=== PATIENT | female | born 1980 | race Caucasian/White ===

== ENCOUNTER 2017-05-15 15:09 | Outpatient (CLI) | payer MEDICAID ==
[~2017-05-15] VITALS: Ht 152.4 cm; Wt 85.0 kg
[~2017-05-15 15:09] MED LIST: PREN-39 PO
[2017-05-15 16:07] VITALS: Ht 152.4 cm; Wt 85.0 kg
[2017-05-15 16:08] VITALS: BP 116/80; PULSE 86; RESP 20
--- NOTE | 2017-05-15 16:40 | RADRPT ---
PROCEDURE: OB ultrasound CLINICAL INDICATION: induced hypertension TECHNIQUE: Multiple transverse and longitudinal OB images of the pelvis were obtained. The images were reviewed on a high-resolution PACS workstation. COMPARISON: None FINDINGS: A single live intrauterine is seen. The presentation is vertex. The placenta is grade 2 a nd anterior in location. No evidence of placenta abruption or previa is seen. The heart rate i s 142 beats per minute. The amniotic fluid index is 12th cm. movement 2 tone 2 breathing 2 Amniotic fluid 2 IMPRESSION: Biophysical profile of 04/10. RPTAT: HPNM Physician Jules Date Time Electronically viewed and signed by Physician Jules on 05/15/2017 16:39 /
[2017-05-15] MEDS ORDERED: CALC600T11 PO (16:48)
[2017-05-15] MEDS ORDERED: FER325 PO (16:48)
[2017-05-15 16:52] LABS: BASOPHILS % 0.5 % (0.0-2.0); EOSINOPHILS % 0.6 % (0.0-7.0); HEMOGLOBIN 12.4 g/dl (12.0-16.0); LYMPHOCYTES # 1.9 10^3/ul (0.8-2.9); LYMPHOCYTES % 29.3 % (15.0-51.0); MEAN CORPUSCULAR HEMOGLOBIN 27.3 pg (29.0-33.0); MEAN CORPUSCULAR HGB CONC 33.5 g/dl (32.0-37.0); MEAN CORPUSCULAR VOLUME 81.3 fl (82.0-101.0); MEAN PLATELET VOLUME 12.5 fl (7.4-10.4); MONOCYTE # 0.7 10^3/ul (0.3-0.9); MONOCYTES % 10.3 % (0.0-11.0); NEUTROPHILS % 59.1 % (39.0-77.0); PLATELET COUNT 197 10^3/UL (140-415); RED BLOOD COUNT 4.55 10^6/ul (4.20-5.40); RED CELL DISTRIBUTION WIDTH 14.7 % (11.5-14.5); WHITE BLOOD COUNT 6.5 10^3/ul (4.8-10.8)
[2017-05-15 17:02] LABS: INR 0.9; PARTIAL THROMBOPLASTIN TIME 25.7 Sec (25.0-35.0); PROTIME 12.1 Sec (12.2-14.2); PT RATIO 0.9
[2017-05-15 17:09] LABS: ADD UMIC YES; ALBUMIN 3.5 g/dl (3.3-4.9); BILIRUBIN,INDIRECT 0.3 mg/dl (0-1.1); BILIRUBIN,TOTAL 0.3 mg/dl (0.2-1.3); TOTAL PROTEIN 6.6 g/dl (6.1-8.1); UR ASCORBIC ACID NEGATIVE (NEGATIVE); UR BILIRUBIN (Dip) NEGATIVE (NEGATIVE); UR BLOOD (Dip) NEGATIVE (NEGATIVE); UR CLARITY CLOUDY (CLEAR); UR COLOR YELLOW (YELLOW); UR GLUCOSE (Dip) NEGATIVE (NEGATIVE); UR KETONES (Dip) NEGATIVE (NEGATIVE); UR LEUKOCYTE ESTERASE (Dip) 2+ Leu/ul (NEGATIVE); UR MUCUS FEW /HPF (NONE SEEN); UR NITRITE (Dip) NEGATIVE (NEGATIVE); UR RBC 3 /HPF (0-5); UR SPECIFIC GRAVITY (Dip) 1.026 (1.003-1.030); UR SQUAMOUS EPITHELIAL CELL MANY /HPF (FEW); UR TOTAL PROTEIN (Dip) 1+ mg/dl (NEGATIVE); UR UROBILINOGEN (Dip) 2+ mg/dL (NEGATIVE)
[2017-05-15 17:10] LABS: ALBUMIN 3.5 g/dl (3.3-4.9); ALBUMIN/GLOBULIN RATIO 1.09; BILIRUBIN,INDIRECT 0.4 mg/dl (0-1.1); BILIRUBIN,TOTAL 0.4 mg/dl (0.2-1.3); CALCIUM 8.7 mg/dl (8.4-10.2); CREATININE 0.55 mg/dl (0.44-1.00); POTASSIUM 3.6 mmol/L (3.5-5.1); TOTAL PROTEIN 6.7 g/dl (6.1-8.1)
--- NOTE | 2017-05-15 20:06 | PN ---
Triage Information Date/Time May 15, 2017 Reason for visit: Sent in from clinic to rule out PIH Weeks of Gestation 35+ /Para 3 para 2 Diabetes: none Hypertention: none Additional information 36-year-old female sent in from clinic at 35 weeks complaining of headache epigastric pain feeling half over body numb Objective Vital Signs Date Time Temp Pulse Resp B/P Pulse Ox O2 Delivery O2 Flow Rate FiO2 05/15/17 16:08 98.3 86 20 116/80 99 Room Air Heart Rate: 140's Heart Rate Comments Reactive Contractions: None Exam Not indicated Results/Medications Result Diagram: 05/15/17 1616 05/15/17 1616 Results 24 hrs Laboratory Tests Test 05/15/17 16:16 White Blood Count 6.5 Red Blood Count 4.55 Hemoglobin 12.4 Hematocrit 37.0 Mean Corpuscular Volume 81.3 L Mean Corpuscular Hemoglobin 27.3 L Mean Corpuscular Hemoglobin Concent 33.5 Red Cell Distribution Width 14.7 H Platelet Count 197 Mean Platelet Volume 12.5 #H Neutrophils % 59.1 Lymphocytes % 29.3 Monocytes % 10.3 Eosinophils % 0.6 Basophils % 0.5 Nucleated Red Blood Cells % 0.0 Neutrophils # (Manual) 3.9 Lymphocytes # 1.9 Monocytes # 0.7 Eosinophils # 0.0 Basophils # 0.0 Nucleated Red Blood Cells # 0.0 Prothrombin Time 12.1 L Prothrombin Time Ratio 0.9 INR International Normalized Ratio 0.90 Activated Partial Thromboplast Time 25.7 Fibrinogen 401.0 Urine Color YELLOW Urine Clarity CLOUDY A Urine pH 6.0 Urine Specific [place] 1.026 Urine Ketones NEGATIVE Urine Nitrite NEGATIVE Urine Bilirubin NEGATIVE Urine Urobilinogen 2+ H Urine Leukocyte Esterase 2+ H Urine Microscopic RBC 3 Urine Microscopic WBC 11 H Urine Squamous Epithelial Cells MANY A Urine Calcium Oxalate Crystals MANY A Urine Mucus FEW A Urine Hemoglobin NEGATIVE Urine Glucose NEGATIVE Urine Total Protein 1+ H Sodium Level 136 Potassium Level 3.6 Chloride Level 108 Carbon Dioxide Level 20 L Anion Gap 12 Blood Urea Nitrogen 7 Creatinine 0.55 Glucose Level 89 Uric Acid 4.7 Calcium Level 8.7 Total Bilirubin 0.3 Direct Bilirubin 0.00 Indirect Bilirubin 0.3 Aspartate Amino Transf (AST/SGOT) 18 Alanine Aminotransferase (ALT/SGPT) 26 Alkaline Phosphatase 165 H Total Protein 6.6 Albumin 3.5 Globulin 3.20 Albumin/Globulin Ratio 1.09 Disposition: Discharge Assessment/Plan Patient had no neurologic deficit follow patient next day in clinic for routine care TANA CORCORAN MD May 15, 2017 20:06
--- NOTE | 2017-05-15 21:00 | TRIAGE ---
OB Triage Datetime Report Generated by CPN: 05/15/2017 21:00 Datetime: 05/15/2017 18:59 Stage of : OB Triage Maternal Assessment Level of Consciousness: Fully Conscious Headache: Denies Nausea/Vomiting: Denies RUQ Epigastric Pain: Denies Labor Evaluation Frequency: 0 Monitor Mode: External Resting Tone [place]: Relaxed Heart Rate FHR Baseline Rate: 130 Monitor Mode: External US FHR Baseline Changes: No Baseline Change Variability: Moderate 6-25 bpm Accelerations: 15X15 Decelerations: None Category: Category I Pain Assessment Pain Scale: 0 Pain Presence: None/Denies Datetime: 05/15/2017 18:00 Stage of : OB Triage Maternal Assessment Level of Consciousness: Fully Conscious Headache: Denies Nausea/Vomiting: Denies RUQ Epigastric Pain: Denies Labor Evaluation Frequency: x1 Monitor Mode: External Resting Tone [place]: Relaxed Heart Rate FHR Baseline Rate: 130 Monitor Mode: External US FHR Baseline Changes: No Baseline Change Variability: Moderate 6-25 bpm Accelerations: 15X15 Decelerations: None Category: Category I Pain Assessment Pain Scale: 0 Pain Presence: None/Denies Datetime: 05/15/2017 16:54 Stage of : OB Triage Assessment Type: Triage Maternal Assessment Level of Consciousness: Fully Conscious DTR's/Clonus: DTRs 2+ Headache: Denies Blurred Vision: No Respiratory Effort: Unlabored Breath Sounds, Left: Clear and Equal Breath Sounds, Right: Clear and Equal Nausea/Vomiting: Denies RUQ Epigastric Pain: Denies Lower Extremities Edema: None Upper Extremities Edema: None Labor Evaluation Frequency: x1 Monitor Mode: External Resting Tone [place]: Relaxed Heart Rate FHR Baseline Rate: 130 Monitor Mode: External US FHR Baseline Changes: No Baseline Change Variability: Moderate 6-25 bpm Accelerations: 15X15 Decelerations: None Category: Category I Pain Assessment Pain Scale: 0 Pain Presence: None/Denies Datetime: 05/15/2017 15:52 Maternal Assessment Level of Consciousness: Fully Conscious DTR's/Clonus: DTRs 2+ Headache: Denies Blurred Vision: No Nausea/Vomiting: Denies RUQ Epigastric Pain: Denies Facial Edema: None Pain Assessment Pain Scale: 0 Pain Presence: None/Denies Datetime: 05/15/2017 15:46 Time of Arrival: 05/15/2017 15:46 EGA: 35.0 Arrived By: Ambulatory Movement: Present Contractions: Denies/Absent Rupture of Membranes: Denies Vaginal Bleeding: None Vaginal Discharge: Denies Recent Sexual Intercouse: Denies Abdominal Trauma: Not Applicable Patient Complaints: None Time Provider Notified: 05/15/2017 16:05 Initial Plan: nst/check bp's /bpp ed/pih labs
== END 2017-05-15 20:55 | disposition home or self-care (01) ==
LOC: OBT 15:09 → L-D 15:10 → OBT 20:55
PROVIDERS: ATTEND Obstetrics & Gynecology
DX: O26.893 Other specified pregnancy related conditions, third trimester (principal); Z3A.35 35 weeks gestation of pregnancy; R51 Headache; R10.13 Epigastric pain; R20.0 Anesthesia of skin
CPT/HCPCS: 76818; 80053; 80076; 81001; 84560; 85025; 85384; 85610; 85730; 87086; Z7500; G0463

== ENCOUNTER 2017-05-23 13:43 | Outpatient (CLI) | payer MEDICAID ==
[~2017-05-23] VITALS: Ht 154.9 cm; Wt 86.0 kg
[~2017-05-23 13:43] MED LIST changes: +CALC600T24 PO; +FER325 PO
[2017-05-23 14:32] VITALS: Ht 154.9 cm; Wt 86.0 kg
[2017-05-23 14:36] VITALS: BP 142/84; PULSE 78
[2017-05-23 14:49] LABS: BASOPHILS % 0.6 % (0.0-2.0); EOSINOPHILS % 0.5 % (0.0-7.0); HEMATOCRIT 37.7 % (37.0-47.0); HEMOGLOBIN 12.9 g/dl (12.0-16.0); LYMPHOCYTES # 1.6 10^3/ul (0.8-2.9); LYMPHOCYTES % 25.2 % (15.0-51.0); MEAN CORPUSCULAR HEMOGLOBIN 27.8 pg (29.0-33.0); MEAN CORPUSCULAR HGB CONC 34.2 g/dl (32.0-37.0); MEAN CORPUSCULAR VOLUME 81.3 fl (82.0-101.0); MEAN PLATELET VOLUME 12.7 fl (7.4-10.4); MONOCYTE # 0.7 10^3/ul (0.3-0.9); MONOCYTES % 11.1 % (0.0-11.0); NEUTROPHIL # 3.9 10^3/ul (1.6-7.5); NEUTROPHILS % 62.3 % (39.0-77.0); PLATELET COUNT 196 10^3/UL (140-415); RED BLOOD COUNT 4.64 10^6/ul (4.20-5.40); WHITE BLOOD COUNT 6.3 10^3/ul (4.8-10.8)
[2017-05-23] MEDS ORDERED: ACYC400T2 PO (14:49)
[2017-05-23 15:13] LABS: ALBUMIN 3.7 g/dl (3.3-4.9); ALBUMIN/GLOBULIN RATIO 1.15; BILIRUBIN,INDIRECT 0.2 mg/dl (0-1.1); BILIRUBIN,TOTAL 0.2 mg/dl (0.2-1.3); CALCIUM 8.9 mg/dl (8.4-10.2); CREATININE 0.46 mg/dl (0.44-1.00); POTASSIUM 3.8 mmol/L (3.5-5.1); TOTAL PROTEIN 6.9 g/dl (6.1-8.1); URIC ACID 4.4 mg/dl (3.1-7.9)
[2017-05-23 15:34] LABS: ADD UMIC YES; UR ASCORBIC ACID NEGATIVE (NEGATIVE); UR BILIRUBIN (Dip) NEGATIVE (NEGATIVE); UR BLOOD (Dip) NEGATIVE (NEGATIVE); UR CLARITY SLIGHTLY CLOUDY (CLEAR); UR COLOR STRAW (YELLOW); UR GLUCOSE (Dip) NEGATIVE (NEGATIVE); UR KETONES (Dip) NEGATIVE (NEGATIVE); UR LEUKOCYTE ESTERASE (Dip) 1+ Leu/ul (NEGATIVE); UR NITRITE (Dip) NEGATIVE (NEGATIVE); UR RBC 2 /HPF (0-5); UR SPECIFIC GRAVITY (Dip) 1.004 (1.003-1.030); UR SQUAMOUS EPITHELIAL CELL FEW /HPF (FEW); UR TOTAL PROTEIN (Dip) NEGATIVE (NEGATIVE); UR UROBILINOGEN (Dip) NEGATIVE (NEGATIVE)
--- NOTE | 2017-05-23 15:44 | RADRPT ---
PROCEDURE: US OB. CLINICAL INDICATION: Size and dates , preeclampsia TECHNIQUE: Multiple sonographic images of the pelvis and gravid uterus were obtained. The images were reviewed on a PACS workstation. COMPARISON: US PELVIS 05/15/2017 FINDINGS: There is a single viable intrauterine gestation. Cardiac activity is present with 126 beats per min [place]. There is a vertex presentation. The placenta is anterior. There is no evidence for an abruption or placenta previa. Measurements were made in order to determine age. The results are as follows: BPD =8.7 cm HC =31.5 cm AC =33.3 cm FL =6.9 cm Estimated gestational age of approximately 35 weeks and 6 days based on ultrasound measurements. Clinical age: 36 weeks and 1 day. The estimated date of delivery is 06/21/17, based on ultrasound measurements. The EFW = 2906 g, 56.8%, based on LMP age. RPTAT: AA IMPRESSION: Single viable intrauterine gestation of approximately 35 weeks and 6 days based on ultrasound measu rements. .Ronaldo Briceno MD, MD Date Time Electronically viewed and signed by .Ronaldo Briceno MD, on 05/23/2017 15:44 .S/
--- NOTE | 2017-05-23 15:50 | RADRPT ---
PROCEDURE: US biophysical profile. CLINICAL INDICATION: Previous E is hypertension. TECHNIQUE: Multiple sonographic images of the uterus were obtained. The images were revi ewed on a PACS workstation. COMPARISON: No prior studies are available for comparison. FINDINGS: There is a single live intrauterine gestation. heart rate is 130 beats per minute. The position is cephalic. The placenta is anterior grade II with no abruption or previa. The NOHEMY is 13.3 cm. (Normal = 5-20 cm.) Breathing Movement: 2 Gross Body Movement: 2 Tone: 2 Qualitative Amniotic Fluid Volume: 2 TOTAL: 8 IMPRESSION: 1. The biophysical score is 8/8. RPTAT: QQ .Musa Astorga MD, MD Date Time Electronically viewed and signed by .Musa Astorga MD, on 05/23/2017 15:50 .R/
--- NOTE | 2017-05-23 17:50 | PN ---
Triage Information Date/Time `7 Reason for visit: R/o PIH Weeks of Gestation 36 weeks and 4 days /Para Diabetes: none Hypertention: none Additional information 37 years old wtih IUP at 36 weeks and [address] Figueredo was sent from the office for R/o PIH due to elevated blood pressure noted during office visit. Patient had 140/80 elevated in office visit. Denies any blurred vision or epigastric pain or contractions. Denies any other complaint. has been monitored for couple of hours and BPs were all in normal range. Objective Vital Signs Date Time Temp Pulse Resp B/P Pulse Ox O2 Delivery O2 Flow Rate FiO2 05/23/17 14:36 98.4 78 142/84 Room Air Results/Medications Result Diagram: 05/23/17 1425 05/23/17 1425 Results 24 hrs Laboratory Tests Test 05/23/17 14:10 05/23/17 14:25 Urine Color STRAW Urine Clarity SLIGHTLY CLOUDY A Urine pH 7.0 Urine Specific [place] 1.004 Urine Ketones NEGATIVE Urine Nitrite NEGATIVE Urine Bilirubin NEGATIVE Urine Urobilinogen NEGATIVE Urine Leukocyte Esterase 1+ H Urine Microscopic RBC 2 Urine Microscopic WBC 0 Urine Squamous Epithelial Cells FEW Urine Hemoglobin NEGATIVE Urine Glucose NEGATIVE Urine Total Protein NEGATIVE White Blood Count 6.3 Red Blood Count 4.64 Hemoglobin 12.9 Hematocrit 37.7 Mean Corpuscular Volume 81.3 L Mean Corpuscular Hemoglobin 27.8 L Mean Corpuscular Hemoglobin Concent 34.2 Red Cell Distribution Width 15.0 H Platelet Count 196 Mean Platelet Volume 12.7 H Neutrophils % 62.3 Lymphocytes % 25.2 Monocytes % 11.1 H Eosinophils % 0.5 Basophils % 0.6 Nucleated Red Blood Cells % 0.0 Neutrophils # 3.9 Lymphocytes # 1.6 Monocytes # 0.7 Eosinophils # 0.0 Basophils # 0.0 Nucleated Red Blood Cells # 0.0 Sodium Level 136 Potassium Level 3.8 Chloride Level 108 Carbon Dioxide Level 20 L Anion Gap 12 Blood Urea Nitrogen 6 L Creatinine 0.46 Glucose Level 85 Uric Acid 4.4 Calcium Level 8.9 Total Bilirubin 0.2 Direct Bilirubin 0.00 Indirect Bilirubin 0.2 Aspartate Amino Transf (AST/SGOT) 20 Alanine Aminotransferase (ALT/SGPT) 22 Alkaline Phosphatase 179 H Total Protein 6.9 Albumin 3.7 Globulin 3.20 Albumin/Globulin Ratio 1.15 Imaging Results PROCEDURE: US biophysical profile. CLINICAL INDICATION: Previous E is hypertension. TECHNIQUE: Multiple sonographic images of the uterus were obtained. The images were reviewed on a PACS workstation. COMPARISON: No prior studies are available for comparison. FINDINGS: There is a single live intrauterine gestation. heart rate is 130 beats per minute. The position is cephalic. The placenta is anterior grade II with no abruption or previa. The NOHEMY is 13.3 cm. (Normal = 5-20 cm.) Breathing Movement: 2 Gross Body Movement: 2 Tone: 2 Qualitative Amniotic Fluid Volume: 2 TOTAL: 8 IMPRESSION: 1. The biophysical score is 8/8. RPTAT: QQ PROCEDURE: US OB. CLINICAL INDICATION: Size and dates , preeclampsia TECHNIQUE: Multiple sonographic images of the pelvis and gravid uterus were obtained. The images were reviewed on a PACS workstation. COMPARISON: US PELVIS 05/15/2017 FINDINGS: There is a single viable intrauterine gestation. Cardiac activity is present with 126 beats per minute. There is a vertex presentation. The placenta is anterior. There is no evidence for an abruption or placenta previa. Measurements were made in order to determine age. The results are as follows: BPD = 8.7 cm HC = 31.5 cm AC = 33.3 cm FL = 6.9 cm Estimated gestational age of approximately 35 weeks and 6 days based on ultrasound measurements. Clinical age: 36 weeks and 1 day. The estimated date of delivery is 06/21/17, based on ultrasound measurements. The EFW = 2906 g, 56.8%, based on LMP age. RPTAT: AA IMPRESSION: Single viable intrauterine gestation of approximately 35 weeks and 6 days based on ultrasound measurements. .Ronaldo Briceno MD, Date Time Electronically viewed and signed by .Ronaldo Briceno MD, MD on 05/23/2017 15: 44 .S/ CC: TANA CORCORAN MD Disposition: Discharge Assessment/Plan 37 years old with IUP at 36 weeks and 1 days BPs all are in normal PIH labs are normal Dc home Advised to have a follow up with the office in 24-48 hours for BP check Has appt tomorrow with the office for NST labor precaution and kick counts and preclampsia precaution was given Patient verbalized understanding MILES COX MD May 23, 2017 17:50
--- NOTE | 2017-05-23 19:21 | TRIAGE ---
OB Triage Datetime Report Generated by CPN: 05/23/2017 19:21 Datetime: 05/23/2017 18:29 Stage of : OB Triage DTR's/Clonus: DTRs 2+ Headache: Denies RUQ Epigastric Pain: Denies Labor Evaluation Frequency: NONE Monitor Mode: External Heart Rate FHR Baseline Rate: 135 Monitor Mode: External US Variability: Moderate 6-25 bpm Accelerations: 15X15 Decelerations: None Pain Assessment Pain Scale: 0 Pain Presence: None/Denies Pain Type: N/A Pain Goal: 0 Vaginal Exam Membrane Status: Intact Datetime: 05/23/2017 17:30 Stage of : OB Triage DTR's/Clonus: DTRs 2+ Headache: Denies RUQ Epigastric Pain: Denies Labor Evaluation Frequency: NONE Monitor Mode: External Heart Rate FHR Baseline Rate: 135 Monitor Mode: External US Variability: Moderate 6-25 bpm Accelerations: 15X15 Decelerations: None Pain Assessment Pain Scale: 0 Pain Presence: None/Denies Pain Type: N/A Pain Goal: 0 Vaginal Exam Membrane Status: Intact Datetime: 05/23/2017 16:35 Stage of : OB Triage DTR's/Clonus: DTRs 2+ Headache: Denies RUQ Epigastric Pain: Denies Labor Evaluation Frequency: NONE Monitor Mode: External Heart Rate FHR Baseline Rate: 135 Monitor Mode: External US Variability: Moderate 6-25 bpm Accelerations: 15X15 Decelerations: None Pain Assessment Pain Scale: 0 Pain Presence: None/Denies Pain Type: N/A Pain Goal: 0 Vaginal Exam Membrane Status: Intact Datetime: 05/23/2017 15:50 Monitor Mode: External US Comments: MOVEMENT PRESENT Datetime: 05/23/2017 15:30 Stage of : OB Triage Labor Evaluation Frequency: NONE Monitor Mode: External Heart Rate FHR Baseline Rate: 130 Monitor Mode: External US Variability: Moderate 6-25 bpm Accelerations: 15X15 Decelerations: None Datetime: 05/23/2017 14:38 Stage of : OB Triage Labor Evaluation Frequency: NONE Monitor Mode: External Heart Rate FHR Baseline Rate: 130 Monitor Mode: External US Variability: Moderate 6-25 bpm Accelerations: 15X15 (Annotations: X 3 IN 15 MIN WINDOW;REAVTIVE NST) Decelerations: None Category: Category I Datetime: 05/23/2017 14:28 Monitor Mode: External US Comments: MOVEMENT PRESENT Datetime: 05/23/2017 14:11 Monitor Mode: External US Datetime: 05/23/2017 14:07 Maternal Assessment Level of Consciousness: Fully Conscious DTR's/Clonus: DTRs 2+ Headache: Denies Breath Sounds, Left: Clear and Equal Breath Sounds, Right: Clear and Equal Nausea/Vomiting: Denies RUQ Epigastric Pain: Denies Temperature Route: Oral Monitor Mode: External Contraction Comments: DENIES UCS Heart Rate FHR Baseline Rate: 130 Monitor Mode: External US Pain Assessment Pain Scale: 0 Pain Presence: None/Denies Pain Type: N/A Pain Goal: 0 Vaginal Exam Membrane Status: Intact Datetime: 05/23/2017 14:01 Maternal Assessment Level of Consciousness: Fully Conscious DTR's/Clonus: DTRs 2+; No Clonus Headache: Denies Blurred Vision: No Respiratory Effort: Unlabored; Regular Rhythm; Equal Expansion Breath Sounds, Left: Clear and Equal Breath Sounds, Right: Clear and Equal Nausea/Vomiting: Denies RUQ Epigastric Pain: Denies Lower Extremities Edema: None Degree: None Upper Extremities Edema: None Degree: None Facial Edema: None Fall Risk Assessment History of Falling: (0) No Secondary Diagnosis: (0) No Ambulatory Aid: (0) Bedrest/Nurse Assist IV Therapy: (0) No Gait: (0) Normal/Bedrest/Immobile Mental Status: (0) Oriented to Own Ability Fall Score: 0 Fall Risk Score Definition: No Risk: No action required Datetime: 05/23/2017 13:56 Time of Arrival: 05/23/2017 13:40 EGA: 36.1 Arrived By: Ambulatory Arrived From: Office Chief Complaint: ELEVATED BP IN CLINIC TODAY Movement: Present Contractions: Denies/Absent Rupture of Membranes: Denies Vaginal Bleeding: None Vaginal Discharge: Denies Recent Sexual Intercouse: Denies Abdominal Trauma: Not Applicable Patient Complaints: Other Initial Plan: R/O PREECLAMPSIA EVALUATION;HX OVARIAN CYST REMOVAL AT 14 YR ;HX GALLBLADDER REMOVED ;VULVAR ULCERATED LESION -TAKING ACYCLOVIR Datetime: 05/15/2017 20:10 Stage of : OB Triage Datetime: 05/15/2017 19:36 Stage of : OB Triage Maternal Assessment Level of Consciousness: Fully Conscious Headache: Denies Blurred Vision: No Nausea/Vomiting: Denies RUQ Epigastric Pain: Present Facial Edema: None Monitor Mode: External Pattern: Normal: <= 5 Contractions in 10 Minutes Resting Tone [place]: Relaxed Heart Rate FHR Baseline Rate: 135 Monitor Mode: External US FHR Baseline Changes: No Baseline Change Variability: Moderate 6-25 bpm Accelerations: 15X15 Decelerations: None Category: Category I Pain Assessment Pain Scale: 0 Pain Presence: None/Denies Pain Type: N/A Datetime: 05/15/2017 15:46 EGA: 35.0 Provider Notified: Dr Figueredo
== END 2017-05-23 19:30 | disposition home or self-care (01) ==
LOC: L-D 13:43 → OBT 13:43
PROVIDERS: ATTEND Obstetrics & Gynecology
DX: O16.3 Unspecified maternal hypertension, third trimester (principal); Z3A.36 36 weeks gestation of pregnancy
CPT/HCPCS: 36415; 76815; 76818; 80053; 81001; 84560; 85025; G0463

== ENCOUNTER 2017-06-04 02:02 | Inpatient (IN) | END 2017-06-06 15:30 | disposition home or self-care (01) | DRG 767 | DX: O70.1 Second degree perineal laceration during delivery (principal); Z37.0 Single live birth; Z30.2 Encounter for sterilization; Z3A.37 37 weeks gestation of pregnancy ==